=== PATIENT | male | born 1990 | race Caucasian/White ===

== ENCOUNTER 2022-01-16 13:11 | Emergency (ER) | payer OTHER ==
[~2022-01-16] VITALS: Ht 177.8 cm; Wt 78.9 kg
[2022-01-16 13:17] VITALS: BP_SYST 118
--- NOTE | 2022-01-16 14:39 | NUR ---
Patient to ER bed tent to gown for evaluation. Side rails up.
--- NOTE | 2022-01-16 14:40 | NUR ---
MD C[place] IN TENT FOR MSE, COVID LIKE SYMPTOMS.
[2022-01-16] MEDS ORDERED: BENZ100C92 PO (15:26)
[2022-01-16] MEDS ORDERED: MED4 PO (15:26)
--- NOTE | 2022-01-16 15:34 | NUR ---
Patient given written and verbal discharge instructions and verbalizes understanding. ER MD discussed with patient the results and treatment provided. Patient in stable condition. ID arm band removed. IV catheter removed intact and dressing applied, no active bleeding. Rx of medrol dose pk,benzonatate given. Patient educated on pain management and to follow up with PMD. Pain Scale 0nd answered. Medication side effect fact sheet provided.
== END 2022-01-16 15:34 | disposition home or self-care (01) ==
LOC: SED 13:11
DX: J20.8 Acute bronchitis due to other specified organisms (principal); R50.9 Fever, unspecified; R05.9 Cough, unspecified; R07.89 Other chest pain; J45.909 Unspecified asthma, uncomplicated; Z79.899 Other long term (current) drug therapy; Z20.822 Contact with and (suspected) exposure to COVID-19
CPT/HCPCS: 36415; 71045; 99284